=== PATIENT | male | born 1950 | race Caucasian/White ===

== ENCOUNTER 2022-08-27 16:14 | Observation (INO) | payer MEDICARE, OTHER ==
[2022-08-27 17:17] LABS: #Basophils 0.1 10x3/uL (0.0-0.2); #Eosinphils 0.2 10x3/uL (0.0-0.5); #Monocytes 0.9 10x3/uL (0.0-1.1); #Neutrophils 8.5 10x3/uL (1.5-8.4); %Basophils 0.4 % (0.0-2.0); %Eosinophils 1.4 % (0.0-6.0); %Lymphocytes 19.8 % (18.0-47.0); %Monocytes 7.2 % (0.0-10.0); %Neutrophils 70.7 % (40.0-75.0); Hemoglobin 12.7 g/dL (13.5-17.5); Mean Corpuscular HGB CONC 34.6 g/dL (32.0-36.0); Mean Corpuscular Hemoglobin 33.5 pg (27.0-33.0); Mean Corpuscular Volume 96.8 fl (81.2-95.1); Mean Platelet Volume 10.2 fl (7.4-10.4); Platelet Count 311 10x3/uL (150-450); RBC Distribution Width 12.3 % (11.5-14.5); Red Blood Cell (RBC) Count 3.79 10x6/uL (4.32-5.72)
[2022-08-27] MEDS ORDERED: Morphine 4 MG/ML VIAL ONE (17:19)
[2022-08-27] MEDS ORDERED: Ondansetron PF 4 MG/2 ML Vial ONE (17:19)
[2022-08-27 17:35] LABS: ALT (SGPT) 45 U/L (8-55); AST (SGOT) 18 U/L (5-34); Alkaline Phosphatase 92 U/L (40-110); Anion Gap 16 mmol/L (10-20); BUN (Urea Nitrogen) 22 mg/dL (8.4-25.7); Bilirubin, Total 0.3 mg/dL (0.2-1.2); Calc. Creatinine Clearance 0 mL/min (70-130); Calcium 8.8 mg/dL (7.8-10.44); Carbon Dioxide 21 mmol/L (23-31); Chloride 102 mmol/L (98-107); Estimated GFR 76; Globulin 3.3 g/dL (2.4-3.5); Glucose 295 mg/dL (80-115); Protein, Total 7.3 g/dL (5.8-8.1); Sodium 135 mmol/L (136-145)
[2022-08-27] MEDS ORDERED: Mag-Al Plus 1200 MG/1200 MG/120 MG/30 ML UDCUP ONE (18:35)
[2022-08-27] MEDS ORDERED: Ketorolac Tromethamine 30 MG/ML VIAL ONE (18:36)
[2022-08-27] MEDS ORDERED: Lidocaine Viscous Sol 2% 15 ml UD Cup ONE (18:36)
[2022-08-27] MEDS ORDERED: Nitroglycerin 0.4 MG TAB (25 Tab Bottle) SL PRN (23:01)
[2022-08-27] MEDS ORDERED: Ondansetron ODT 4 MG TAB PO PRN (23:17)
[2022-08-27] MEDS ORDERED: Ondansetron PF 4 MG/2 ML Vial IVP PRN (23:17)
[2022-08-28 00:16] VITALS: BMI 38.6
[2022-08-28] MEDS ORDERED: Dextrose 5% in Water 1,000 ML IV PRN (02:04)
[2022-08-28] MEDS ORDERED: HumaLOG 300 UNITS/3 ML VIAL SC PRN (02:04)
[2022-08-28] MEDS ORDERED: Dextrose 50% Abboject 50 ML SYRINGE SLOW IVP PRN (02:04)
[2022-08-28 04:28] LABS: #Basophils 0.1 10x3/uL (0.0-0.2); #Eosinphils 0.1 10x3/uL (0.0-0.5); #Monocytes 0.9 10x3/uL (0.0-1.1); #Neutrophils 6.3 10x3/uL (1.5-8.4); %Basophils 0.5 % (0.0-2.0); %Eosinophils 1.4 % (0.0-6.0); %Lymphocytes 28.4 % (18.0-47.0); %Monocytes 8.5 % (0.0-10.0); %Neutrophils 60.9 % (40.0-75.0); Hemoglobin 11.5 g/dL (13.5-17.5); Mean Corpuscular HGB CONC 33.6 g/dL (32.0-36.0); Mean Corpuscular Hemoglobin 33.5 pg (27.0-33.0); Mean Corpuscular Volume 99.7 fl (81.2-95.1); Mean Platelet Volume 10.4 fl (7.4-10.4); Platelet Count 255 10x3/uL (150-450); RBC Distribution Width 12.4 % (11.5-14.5); Red Blood Cell (RBC) Count 3.43 10x6/uL (4.32-5.72); White Blood Cell (WBC) Count 10.4 10x3/uL (3.5-10.5)
[2022-08-28 04:44] LABS: ALT (SGPT) 39 U/L (8-55); AST (SGOT) 17 U/L (5-34); Albumin 3.5 g/dL (3.4-4.8); Alkaline Phosphatase 77 U/L (40-110); Anion Gap 14 mmol/L (10-20); BUN (Urea Nitrogen) 28 mg/dL (8.4-25.7); Bilirubin, Total 0.3 mg/dL (0.2-1.2); Calc. Creatinine Clearance 91 mL/min (70-130); Calcium 8.6 mg/dL (7.8-10.44); Carbon Dioxide 23 mmol/L (23-31); Cardiac Risk 4.7 (Less than 4.5); Chloride 103 mmol/L (98-107); Cholesterol 142 mg/dl (< 200 Desired); Estimated GFR 70; Globulin 3.2 g/dL (2.4-3.5); Glucose 270 mg/dL (80-115); HDL Cholesterol 30 mg/dL (>60 Neg Risk); LDL Cholesterol, Calculated 79 mg/dL; Magnesium 1.9 mg/dL (1.6-2.6); Potassium 4.1 mmol/L (3.5-5.1); Protein, Total 6.7 g/dL (5.8-8.1); Sodium 136 mmol/L (136-145); Triglycerides 163 mg/dL (Less than 150)
[2022-08-28 07:17] LABS: SARS-CoV-2 NAA Rapid Test Not Detected (NotDetected)
[2022-08-28] MEDS: Aspirin Chewable 81 MG TAB PO SCH (08:38)
[2022-08-28] MEDS: Metoprolol Tartrate 25 MG TAB PO SCH ×2 (08:38→20:14)
[2022-08-28] MEDS ORDERED: Enoxaparin Sodium 40 MG/0.4 ML SYRINGE SC SCH (09:00)
[2022-08-28 09:16] LABS: Troponin I 1.471 ng/mL (< 0.028)
[2022-08-28] MEDS ORDERED: Communication Order-Pharmacy FS SCH (11:45)
[2022-08-28] MEDS ORDERED: Sodium Chloride 0.9% 1,000 ML IV SCH (11:45)
[2022-08-28] MEDS: Acetaminophen 325 MG TAB PO PRN (14:35)
[2022-08-28 18:31] LABS: Hemoglobin A1c 7.4 % (4.0-6.0)
[2022-08-28] MEDS ORDERED: diphenhydrAMINE 25 MG CAP PO PRN (18:31)
[2022-08-28] MEDS ORDERED: diphenhydrAMINE 25 MG CAP PO SCH (18:45)
[2022-08-28] MEDS: Atorvastatin Calcium 40 MG TAB PO SCH (20:14)
[2022-08-29 05:09] LABS: Anion Gap 15 mmol/L (10-20); BUN (Urea Nitrogen) 15 mg/dL (8.4-25.7); Calc. Creatinine Clearance 119 mL/min (70-130); Carbon Dioxide 25 mmol/L (23-31); Chloride 103 mmol/L (98-107); Estimated GFR 93; Glucose 178 mg/dL (80-115); Potassium 4.5 mmol/L (3.5-5.1); Sodium 138 mmol/L (136-145)
[2022-08-29 05:21] LABS: #Basophils 0.1 10x3/uL (0.0-0.2); #Eosinphils 0.2 10x3/uL (0.0-0.5); #Monocytes 0.7 10x3/uL (0.0-1.1); #Neutrophils 5.1 10x3/uL (1.5-8.4); %Basophils 0.6 % (0.0-2.0); %Eosinophils 2.3 % (0.0-6.0); %Lymphocytes 29.5 % (18.0-47.0); %Neutrophils 59.3 % (40.0-75.0); Hemoglobin 12.6 g/dL (13.5-17.5); Mean Corpuscular HGB CONC 33.1 g/dL (32.0-36.0); Mean Corpuscular Hemoglobin 32.9 pg (27.0-33.0); Mean Corpuscular Volume 99.5 fl (81.2-95.1); Mean Platelet Volume 10.4 fl (7.4-10.4); Platelet Count 261 10x3/uL (150-450); RBC Distribution Width 12.4 % (11.5-14.5); Red Blood Cell (RBC) Count 3.83 10x6/uL (4.32-5.72); White Blood Cell (WBC) Count 8.7 10x3/uL (3.5-10.5)
[2022-08-29] MEDS: Aspirin Chewable 81 MG TAB PO SCH (05:30)
[2022-08-29] MEDS: Sodium Chloride 0.9% 1,000 ML IV SCH ×2 (05:30→15:51)
[2022-08-29] MEDS: Metoprolol Tartrate 25 MG TAB PO SCH ×2 (05:31→21:08)
[2022-08-29] MEDS ORDERED: Clopidogrel Bisulfate 75 MG TAB PO SCH ×3 (05:45→09:00)
[2022-08-29] MEDS: Acetaminophen 325 MG TAB PO PRN (09:42)
[2022-08-29] MEDS ORDERED: Lidocaine 1% (PF) 30 ML VIAL ONE (10:27)
[2022-08-29] MEDS ORDERED: Nitroglycerin 50 MG/250 ML BOT 250 ML ONE (10:27)
[2022-08-29] MEDS ORDERED: Heparin 10,000 UNITS/ 10 ML VIAL ONE (10:27)
[2022-08-29] MEDS ORDERED: Adenosine 6 MG/2 ML VIAL ONE (10:28)
[2022-08-29] MEDS ORDERED: Fentanyl 100 MCG/2 ML VIAL ONE (10:28)
[2022-08-29] MEDS ORDERED: Midazolam HCl 5 mg/5 ml Vial ONE (10:29)
[2022-08-29 11:48] LABS: Troponin I 2.547 ng/mL (< 0.028)
[2022-08-29] MEDS ORDERED: TICAGRELOR 90 MG TABLET ONE (12:17)
[2022-08-29] MEDS ORDERED: Iopamidol 300 61% 50 ML VIAL FS ONE (12:23)
[2022-08-29] MEDS ORDERED: Iopamidol 300 61% 100 ML VIAL FS ONE (12:23)
[2022-08-29] MEDS ORDERED: Protamine Sulfate 50 MG/5 ML VIAL ONE (13:01)
[2022-08-29 13:11] LABS: Hemoglobin A1c 7.5 % (4.0-6.0)
[2022-08-29] MEDS: HYDROcodone/Acetaminophen 5/325 mg Tablet PO PRN ×2 (15:50→21:14)
[2022-08-29] MEDS: Atorvastatin Calcium 40 MG TAB PO SCH (21:08)
[2022-08-30 04:31] LABS: ALT (SGPT) 30 U/L (8-55); AST (SGOT) 22 U/L (5-34); Albumin 3.4 g/dL (3.4-4.8); Alkaline Phosphatase 81 U/L (40-110); Anion Gap 13 mmol/L (10-20); BUN (Urea Nitrogen) 8 mg/dL (8.4-25.7); Bilirubin, Total 0.4 mg/dL (0.2-1.2); Calc. Creatinine Clearance 130 mL/min (70-130); Calcium 8.6 mg/dL (7.8-10.44); Carbon Dioxide 24 mmol/L (23-31); Chloride 105 mmol/L (98-107); Estimated GFR 96; Globulin 3.3 g/dL (2.4-3.5); Glucose 149 mg/dL (80-115); Potassium 4.2 mmol/L (3.5-5.1); Protein, Total 6.7 g/dL (5.8-8.1); Sodium 138 mmol/L (136-145)
[2022-08-30 04:44] LABS: #Eosinphils 0.2 10x3/uL (0.0-0.5); #Monocytes 0.7 10x3/uL (0.0-1.1); #Neutrophils 5.8 10x3/uL (1.5-8.4); %Basophils 0.5 % (0.0-2.0); %Eosinophils 2.1 % (0.0-6.0); %Lymphocytes 23.9 % (18.0-47.0); %Monocytes 7.5 % (0.0-10.0); %Neutrophils 65.7 % (40.0-75.0); Hemoglobin 11.7 g/dL (13.5-17.5); Mean Corpuscular HGB CONC 33.6 g/dL (32.0-36.0); Mean Corpuscular Hemoglobin 33.1 pg (27.0-33.0); Mean Corpuscular Volume 98.3 fl (81.2-95.1); Mean Platelet Volume 10.2 fl (7.4-10.4); Platelet Count 242 10x3/uL (150-450); RBC Distribution Width 12.2 % (11.5-14.5); Red Blood Cell (RBC) Count 3.54 10x6/uL (4.32-5.72); White Blood Cell (WBC) Count 8.8 10x3/uL (3.5-10.5)
[2022-08-30] MEDS: Sodium Chloride 0.9% 1,000 ML IV SCH (05:51)
[2022-08-30 08:19] VITALS: TEMP 98.2
[2022-08-30] MEDS: Aspirin Chewable 81 MG TAB PO SCH (08:46)
[2022-08-30] MEDS: Metoprolol Tartrate 25 MG TAB PO SCH (08:46)
[2022-08-30] MEDS: HYDROcodone/Acetaminophen 5/325 mg Tablet PO PRN (08:46)
[2022-08-30] MEDS ORDERED: Clopidogrel Bisulfate 75 MG TAB PO SCH (09:00)
[2022-08-30 09:01] VITALS: BP 171/82
[2022-08-30] MEDS ORDERED: Empagliflozin 10 MG TAB PO SCH (10:00)
[2022-08-31] MEDS ORDERED: Empagliflozin 10 MG TAB PO SCH (09:00)
== END 2022-08-30 11:20 | disposition home or self-care (01) ==
LOC: CSHERS 16:14 → CSHTELE 23:09
PROVIDERS: ADMIT Internal Medicine; ATTEND Family Medicine
DX: I21.4 Non-ST elevation (NSTEMI) myocardial infarction (principal); I25.10 Atherosclerotic heart disease of native coronary artery without angina pectoris; I31.39 Other pericardial effusion (noninflammatory); I36.1 Nonrheumatic tricuspid (valve) insufficiency; E11.65 Type 2 diabetes mellitus with hyperglycemia; I10 Essential (primary) hypertension; E78.5 Hyperlipidemia, unspecified; Z79.82 Long term (current) use of aspirin; Z79.4 Long term (current) use of insulin; Z79.84 Long term (current) use of oral hypoglycemic drugs; Z79.899 Other long term (current) drug therapy; Z20.822 Contact with and (suspected) exposure to COVID-19
CPT/HCPCS: 71045; 80048; 80053 ×3; 80061; 82553; 83036 ×2; 83735; 83880; 84484 ×4; 85025 ×4; 92978; 92979; 93005; 93306; 93458; 94760 ×2; 96374; 96375; 99285; C1725 ×4; C1753; C1760 ×2; C1769; C1874 ×2; C1887; C9600; C9607; U0002; 36415; 92928; 92943; 93010; 99152; 99153; G0378; J0153; J1644; J1885; J2001; J2250; J2270; J2405; J2720; J3010; J7050; Q9967

== ENCOUNTER 2022-09-05 18:15 | Observation (INO) | payer MEDICARE ==
[2022-09-05 19:21] LABS: #Basophils 0.1 10x3/uL (0.0-0.2); #Eosinphils 0.1 10x3/uL (0.0-0.5); #Monocytes 1.1 10x3/uL (0.0-1.1); #Neutrophils 9.4 10x3/uL (1.5-8.4); %Basophils 0.4 % (0.0-2.0); %Eosinophils 1.1 % (0.0-6.0); %Monocytes 8.6 % (0.0-10.0); %Neutrophils 73.5 % (40.0-75.0); Mean Corpuscular HGB CONC 33.6 g/dL (32.0-36.0); Mean Corpuscular Hemoglobin 33.3 pg (27.0-33.0); Mean Corpuscular Volume 99.2 fl (81.2-95.1); Mean Platelet Volume 9.9 fl (7.4-10.4); Platelet Count 314 10x3/uL (150-450); RBC Distribution Width 12.7 % (11.5-14.5); White Blood Cell (WBC) Count 12.8 10x3/uL (3.5-10.5)
[2022-09-05 19:44] LABS: AST (SGOT) 21 U/L (5-34); Albumin 4.1 g/dL (3.4-4.8); Alkaline Phosphatase 96 U/L (40-110); Anion Gap 16 mmol/L (10-20); BUN (Urea Nitrogen) 14 mg/dL (8.4-25.7); Bilirubin, Total 0.5 mg/dL (0.2-1.2); Calc. Creatinine Clearance 0 mL/min (70-130); Calcium 9.1 mg/dL (7.8-10.44); Carbon Dioxide 19 mmol/L (23-31); Chloride 107 mmol/L (98-107); Estimated GFR 96; Globulin 3.4 g/dL (2.4-3.5); Glucose 124 mg/dL (80-115); Potassium 4.5 mmol/L (3.5-5.1); Protein, Total 7.5 g/dL (5.8-8.1); Sodium 137 mmol/L (136-145)
[2022-09-05 19:45] LABS: ALT (SGPT) 35 U/L (8-55)
[2022-09-05 20:07] LABS: CKMB 2.8 ng/mL (0-6.6)
[2022-09-05] MEDS ORDERED: Fentanyl 100 MCG/2 ML VIAL ONE (20:38)
[2022-09-05] MEDS ORDERED: Nitroglycerin 2% Ointment 1 INCH/1 GM Packet ONE (20:39)
[2022-09-05] MEDS ORDERED: Ondansetron PF 4 MG/2 ML Vial IVP PRN (22:49)
[2022-09-05] MEDS ORDERED: Acetaminophen 325 MG TAB PO PRN (22:49)
[2022-09-05] MEDS ORDERED: Senokot S 8.6-50 MG TAB PO PRN (22:49)
[2022-09-05] MEDS ORDERED: HYDROcodone/Acetaminophen 5/325 mg Tablet PO PRN (22:49)
[2022-09-05] MEDS ORDERED: Guaifenesin DM 100-10/5 ML UDCUP PO PRN (22:49)
[2022-09-05] MEDS ORDERED: Calcium Carbonate 500 MG ChewTAB PO PRN (22:49)
[2022-09-05] MEDS ORDERED: Nitroglycerin 0.4 MG TAB (25 Tab Bottle) SL PRN (22:51)
[2022-09-05] MEDS ORDERED: Metoprolol Tartrate 25 MG TAB PO SCH (23:00)
[2022-09-06] MEDS ORDERED: Metoprolol Tartrate 25 MG TAB ONE (00:11)
[2022-09-06 00:42] LABS: CKMB 2.5 ng/mL (0-6.6)
[2022-09-06 02:43] LABS: Bilirubin Neg (Negative); Blood, Urine 10 (Negative); Glucose, Urine (Dipstick) >=1000 mg/dL (Negative); Ketone, Urine Negative (Negative); Leukocyte 100 (Negative); Nitrite Positive (Negative); Protein, Urine (Dipstick) 15 mg/dl (Neg-Trace); Urobilinogen Normal mg/dL (Less than 2)
[2022-09-06 03:01] LABS: Clarity Slightly Cloudy (Clear)
[2022-09-06 03:03] LABS: Bacteria/HPF 3+ HPF (None Seen); RBC/HPF 0-3 HPF (0-3); Squamous Epithelial 0-3 HPF (0-3)
[2022-09-06 05:12] LABS: #Basophils 0.1 10x3/uL (0.0-0.2); #Eosinphils 0.1 10x3/uL (0.0-0.5); #Monocytes 1.1 10x3/uL (0.0-1.1); #Neutrophils 7.9 10x3/uL (1.5-8.4); %Basophils 0.4 % (0.0-2.0); %Eosinophils 1.1 % (0.0-6.0); %Lymphocytes 21.5 % (18.0-47.0); %Monocytes 9.4 % (0.0-10.0); %Neutrophils 67.2 % (40.0-75.0); Hemoglobin 12.1 g/dL (13.5-17.5); Mean Corpuscular HGB CONC 33.4 g/dL (32.0-36.0); Mean Corpuscular Hemoglobin 33.2 pg (27.0-33.0); Mean Corpuscular Volume 99.5 fl (81.2-95.1); Mean Platelet Volume 10.1 fl (7.4-10.4); Platelet Count 307 10x3/uL (150-450); RBC Distribution Width 12.7 % (11.5-14.5); Red Blood Cell (RBC) Count 3.64 10x6/uL (4.32-5.72); White Blood Cell (WBC) Count 11.8 10x3/uL (3.5-10.5)
[2022-09-06 05:20] LABS: CKMB 2.2 ng/mL (0-6.6)
[2022-09-06] MEDS ORDERED: glipiZIDE 10 MG TAB PO SCH (07:30)
[2022-09-06] MEDS ORDERED: Clopidogrel Bisulfate 75 MG TAB ONE (07:49)
[2022-09-06] MEDS ORDERED: Aspirin Chewable 81 MG TAB ONE (07:49)
[2022-09-06] MEDS ORDERED: Enoxaparin Sodium 40 MG/0.4 ML SYRINGE ONE (07:50)
[2022-09-06] MEDS ORDERED: NIFEdipine XL 30 MG TAB ONE (08:38)
[2022-09-06 08:50] VITALS: BP 163/94
[2022-09-06] MEDS ORDERED: Metoprolol Tartrate 25 MG TAB PO SCH (09:00)
[2022-09-06] MEDS ORDERED: Lisinopril 20 MG TAB PO SCH (09:00)
[2022-09-06] MEDS ORDERED: Potassium Chloride 10 MEQ TAB PO SCH (09:00)
[2022-09-06] MEDS ORDERED: Empagliflozin 10 MG TAB PO SCH (09:00)
[2022-09-06] MEDS ORDERED: NIFEdipine XL 30 MG TAB PO SCH (09:00)
[2022-09-06] MEDS ORDERED: Clopidogrel Bisulfate 75 MG TAB PO SCH (09:00)
[2022-09-06] MEDS ORDERED: Aspirin Chewable 81 MG TAB PO SCH (09:00)
[2022-09-06] MEDS ORDERED: Enoxaparin Sodium 40 MG/0.4 ML SYRINGE SC SCH (09:00)
[2022-09-06] MEDS ORDERED: Atorvastatin Calcium 40 MG TAB PO SCH (21:00)
== END 2022-09-06 12:05 | disposition home or self-care (01) ==
LOC: CSHERS 18:15 → CSHERHOLD 22:16 → INTOOBSV 22:16
PROVIDERS: ADMIT Student in an Organized Health Care Education/Training Program; ATTEND Nurse Practitioner Family
DX: R07.9 Chest pain, unspecified (principal); N39.0 Urinary tract infection, site not specified; I25.10 Atherosclerotic heart disease of native coronary artery without angina pectoris; I10 Essential (primary) hypertension; E78.5 Hyperlipidemia, unspecified; E11.9 Type 2 diabetes mellitus without complications; R77.8 Other specified abnormalities of plasma proteins; E66.9 Obesity, unspecified; Z79.82 Long term (current) use of aspirin; Z79.02 Long term (current) use of antithrombotics/antiplatelets; Z79.899 Other long term (current) drug therapy; Z95.5 Presence of coronary angioplasty implant and graft
CPT/HCPCS: 71045; 80053; 81001; 82553 ×2; 84484 ×3; 85025 ×2; 93005; 96374; 99285; G0378 ×2; 36415; J1650; J3010